=== PATIENT | female | born 1980 | race Caucasian/White ===

== ENCOUNTER 2019-02-02 11:39 | Emergency (ER) | payer SELFPAY ==
[2019-02-02] MEDS ORDERED: OXYCODONE-ACETAMINOPHEN 5-325 MG TABLET PO ONE (13:33)
--- NOTE | 2019-02-02 13:39 | ER Document Report ---
ED Medical Screen (RME) - General Chief Complaint: Abscess Stated Complaint: ABSCESS Time Seen by Provider: 02/02/19 13:33 Primary Care Provider: LINDSEY CISNEROS MD [Primary Care Provider] - Follow up as needed Mode of Arrival: Ambulatory Information source: Patient Notes: Pt with c/o abscess to right buttock over the last few days. Pt denies nay fever or HX of diabetes. Exam: Area of fluctuance and induration to right buttock. I have greeted and performed a rapid initial assessment of this patient. A comprehensive ED assessment and evaluation of the patient, analysis of test results and completion of the medical decision making process will be conducted by additional ED providers. I have specifically instructed the patient or family members with the patient to immediately return to any nursing staff should anything change in the patient's condition or with their chief complaint. This medical record was dictated with voice recognizing software. There may be grammatical, syntax errors that are unintended. TRAVEL OUTSIDE OF THE [place] IN LAST 30 DAYS: No - Related Data Allergies/Adverse Reactions: codeine [Codeine] Adverse Reaction (Intermediate, Verified 03/09/16 01:58) VOMITING aloe Adverse Reaction (Verified 03/10/16 16:10) Generalized rash Past Medical History - Social History Frequency of alcohol use: None Drug Abuse: None Renal/ Medical History: Denies: Hx Peritoneal Dialysis GI Medical History: Reports: Hx Gastroesophageal Reflux Disease Psychiatric Medical History: Reports: Hx Anxiety, Hx Depression Past Surgical History: Reports: Hx Gynecologic Surgery - D&C, Hx Tonsillectomy - Immunizations Hx Diphtheria, Pertussis, Tetanus Vaccination: Yes Physical Exam - Vital signs Vitals: Temp Pulse Resp BP Pulse Ox 99.1 F 89 18 110/73 97 02/02/19 11:48 02/02/19 11:48 02/02/19 11:48 02/02/19 11:48 02/02/19 11:48 Course - Vital Signs Vital signs: Temp Pulse Resp BP Pulse Ox 99.1 F 89 18 110/73 97 02/02/19 11:48 02/02/19 11:48 02/02/19 11:48 02/02/19 11:48 02/02/19 11:48 Doctor's Discharge - Discharge Referrals: LINDSEY CISNEROS MD [Primary Care Provider] - Follow up as needed
--- NOTE | 2019-02-02 15:00 | ER Document Report ---
ED Skin Rash/Insect Bite/Abscs - General Chief Complaint: Abscess Stated Complaint: ABSCESS Time Seen by Provider: 02/02/19 13:33 Primary Care Provider: [facility] [Provider Group] - Follow up as needed LINDSEY CISNEROS MD [Primary Care Provider] - Follow up in 3-5 days Mode of Arrival: Ambulatory Information source: Patient Notes: 38-year-old female presents to ED for abscess to the right buttocks. She states she has had it surgically treated several years ago in this hospital. She states the surgeon told her that she had a fistula and this was part of the Crohn's disease. She states she came in today to see if it needed to be surgically repaired. There is no large redness cellulitis area so we will treated with an I&D. TRAVEL OUTSIDE OF THE [place] IN LAST 30 DAYS: No - HPI Patient complains to provider of: Tender/swollen area Onset: Other - Several days Onset/Duration: Gradual Quality of pain: Pressure, Sharp Severity: Moderate Pain Level: 4 Skin Character: Abscess Identify cause: Yes Exacerbated by: Denies Relieved by: Denies Similar symptoms previously: Yes Recently seen / treated by doctor: No - Related Data Allergies/Adverse Reactions: codeine [Codeine] Adverse Reaction (Intermediate, Verified 03/09/16 01:58) VOMITING aloe Adverse Reaction (Verified 03/10/16 16:10) Generalized rash Past Medical History - General Information source: Patient - Social History Smoking Status: Current Every Day Smoker Cigarette use (# per day): Yes Frequency of alcohol use: None Drug Abuse: None Lives with: Family Family History: Reviewed & Not Pertinent Patient has suicidal ideation: No Patient has homicidal ideation: No - Past Medical History Cardiac Medical History: Reports: None - Number Pulmonary Medical History: Reports: None EENT Medical History: Reports: None Neurological Medical History: Reports: None Endocrine Medical History: Reports: None Renal/ Medical History: Reports: None Malignancy Medical History: Reports: None GI Medical History: Reports: Hx Crohn's Disease, Hx Gastroesophageal Reflux Disease Musculoskeletal Medical History: Reports None Skin Medical History: Reports None Psychiatric Medical History: Reports: Hx Anxiety, Hx Depression Traumatic Medical History: Reports: None Infectious Medical History: Reports: None Surgical Hx: Negative Past Surgical History: Reports: None, Hx Gynecologic Surgery - D&C, Hx Tonsillectomy, Other - I&D to abscess to right buttocks in the operating room - Immunizations Immunizations up to date: Yes Hx Diphtheria, Pertussis, Tetanus Vaccination: Yes Review of Systems - Review of Systems Constitutional: No symptoms reported EENT: No symptoms reported Cardiovascular: No symptoms reported Respiratory: No symptoms reported Gastrointestinal: No symptoms reported Genitourinary: No symptoms reported Female Genitourinary: No symptoms reported Musculoskeletal: No symptoms reported Skin: Other - Recurrent abscess to the right buttocks Hematologic/Lymphatic: No symptoms reported Neurological/Psychological: No symptoms reported -: Yes All other systems reviewed and negative Physical Exam - Vital signs Vitals: Temp Pulse Resp BP Pulse Ox 99.1 F 89 18 110/73 97 02/02/19 11:48 02/02/19 11:48 02/02/19 11:48 02/02/19 11:48 02/02/19 11:48 Interpretation: Normal - General General appearance: Appears well, Alert - HEENT Head: Normocephalic, Atraumatic Eyes: Normal Pupils: PERRL - Respiratory Respiratory status: No respiratory distress Chest status: Nontender Breath sounds: Normal Chest palpation: Normal - Cardiovascular Rhythm: Regular Heart sounds: Normal auscultation Murmur: No - Abdominal Inspection: Normal Distension: No distension Bowel sounds: Normal Tenderness: Nontender Organomegaly: No organomegaly - Back Back: Normal, Nontender - Extremities General upper extremity: Normal inspection, Nontender, Normal color, Normal ROM, Normal temperature General lower extremity: Normal inspection, Nontender, Normal color, Normal ROM, Normal temperature, Normal weight bearing. No: Jasson's sign - Neurological Neuro grossly intact: Yes Cognition: Normal Orientation: AAOx4 [place] Coma Scale Eye Opening: Spontaneous [place] Coma Scale Verbal: Oriented [place] Coma Scale Motor: Obeys Commands [place] Coma Scale Total: 15 Speech: Normal Motor strength normal: LUE, RUE, LLE, RLE Sensory: Normal - Psychological Associated symptoms: Normal affect, Normal mood - Skin Skin Temperature: Warm Skin Moisture: Dry Skin Color: Normal Skin irregularity: Abscess - Right buttocks recurrent abscess Location of irregularity: Other - Right buttocks Irregularity with: Swelling, Tenderness, Warmth Course - Vital Signs Vital signs: Temp Pulse Resp BP Pulse Ox 98.7 F 72 18 122/77 99 02/02/19 15:41 02/02/19 15:41 02/02/19 15:41 02/02/19 15:41 02/02/19 15:41 Procedures - Incision and Drainage Right Buttock Time completed: 15:20 Type: Simple Anesthetic type: 1% Lidocaine mL's of anesthetic: 5 Blade size: 11 I&D procedure: Shurclens applied, Iodoform packing placed Incision Method: Incision made by scalpel Amount/type of drainage: purulent drainage large amount Discharge - Discharge Clinical Impression: Abscess, perianal Condition: Stable Disposition: HOME, SELF-CARE Additional Instructions: ABSCESS: You have an abscess (boil). This a pus-forming infection, usually due to staph. Some boils may be left to drain on their own, but most require lancing. From the time the tender lump first appears, it may be three or four days before the abscess is ready to benoit. Local heat and rest help at this stage of treatment. An antibiotic may prevent spread of the infection. Once the abscess is opened, packing may be placed into it. This is done so pus is not sealed inside by premature closure of the cavity. The packing will be removed at your follow-up visit or you may be advised to remove it yourself at home. Sometimes this packing must be replaced a few times during healing. The wound will heal with surprisingly little scar. Depending on the size and location of an abscess, healing can take one to four weeks. You may shower and wash the area around the incision site two or three times a day. Antibiotics may be prescribed, but are usually not necessary after an abscess has been drained. If you develop fever, chills, worsening pain, or increasing swelling in the area, call the doctor or return immediately. POST INCISION AND DRAINAGE: You have had an incision made to allow drainage of an abscess. The incision must remain open so that pus and debris can drain from the wound. If the abscess cavity is large, packing is placed. This keeps the tissues from collapsing and trapping pus inside, while the body shrinks the cavity. The packing may need to be replaced every day or two. The physician will instruct you on the packing. Keep a bulky dressing over the area. Replace it if it becomes saturated with blood or pus. Do not disturb the packing (if present). You may shower and cleanse the area with gentle soap and warm water two or three times a day. Local warmth may be soothing, and may promote faster healing. Return if you develop high fever or chills, or if you note spreading redness, increasing swelling, or increasing tenderness. ORAL NARCOTIC MEDICATION: You have been given a oxycodone for pain control. This medication is a narcotic. It's best taken with food, as nausea can result if taken on an empty stomach. Don't operate machinery or drive within six hours of taking this medication. Do not combine this medicine with alcohol, or with any medication which can cause sedation (such as cold tablets or sleeping pills) unless you get permission from the physician. Narcotics tend to cause constipation. If possible, drink plenty of fluids and eat a diet high in fiber and fruits. CEPHALEXIN: The antibiotic you've been prescribed is a member of the cephalosporin class. This type of antibiotic covers a wide variety of infections, including those of the skin, lungs, and urinary tract. It's useful for staph infections. This antibiotic is slightly similar to the penicillin family. In rare cases, a person who is allergic to penicillin will also be allergic to this medication. If you have had a severe allergic reaction to penicillin, and have not taken this antibiotic since that time, notify your doctor. Antibiotics which cover many germs ("broad spectrum" antibiotics) are more likely to cause diarrhea or "yeast" infections. Women prone to vaginal yeast problems may suffer an attack after taking this antibiotic. In infants, oral thrush (white spots "stuck" on the cheek) or yeast diaper rash may result. See your doctor if these problems occur. Call at once if you develop itching, hives, shortness of breath, or lightheadedness. TRIMETHOPRIM-SULFA: You have been given a prescription for trimethoprim-sulfa (TMS, Septra, Bactrim). This is a combination antibiotic of the sulfa class, often used for urinary tract infections, middle ear infections, bronchitis, shigella intestinal infection, and Pneumocystis pneumonia. TMS is usually well-tolerated. Occasional side effects include nausea and decreased appetite. Septra is not recommended for infants less than two months of age. Do not take this medication if you have experienced severe side effects or allergy to sulfa medicine. You should stop this medicine at once and contact your physician if you develop any rash, joint pain, shortness of breath, bruising, or jaundice (yellow color in the skin), or if you develop any other new or unusual symptoms. FOLLOW-UP CARE: Most simple abscesses will not require a follow up visit. If you had packing placed in the abscess, remove it as instructed by the physician. If you have been referred to a physician for follow-up care, call the physicians office for an appointment as you were instructed or within the next two days. If you experience worsening or a significant change in your symptoms, return to the Emergency Department at any time for re-evaluation. Prescriptions: Cephalexin Monohydrate [Keflex 500 mg Capsule] 500 mg PO Q6H 7 Days capsule Sulfamethoxazole/Trimethoprim [Bactrim Ds Tablet] 1 each PO BID #14 tablet Referrals: LINDSEY CISNEROS MD [Primary Care Provider] - Follow up in 3-5 days [facility] [Provider Group] - Follow up as needed
[2019-02-02] MEDS ORDERED: HYDROCODONE/ACETAMINOPHEN 5-325 MG (6 TAB/ER DISP) PO PRN (15:22)
[2019-02-02] MEDS ORDERED: CEPHALEXIN 500 MG CAPSULE PO ONE (15:22)
[2019-02-02] MEDS ORDERED: SULFAMETHOXAZOLE/TRIMETHOPRIM 800-160 MG TABLET PO ONE (15:22)
[2019-02-02 15:42] VITALS: BP 122/77
== END 2019-02-02 15:43 | disposition home or self-care (01) ==
LOC: ER 11:39
DX: K61.0 Anal abscess (principal); F17.210 Nicotine dependence, cigarettes, uncomplicated
CPT/HCPCS: 99283; 87070; 87205; 46050; A6266

== ENCOUNTER 2019-02-05 05:44 | Emergency (ER) | payer SELFPAY ==
[2019-02-05] MEDS ORDERED: LIDOCAINE 1% INJ (10 MG/ML) 10 ML MDV INJ ONE (06:05)
--- NOTE | 2019-02-05 06:27 | ER Document Report ---
Entered by LE FARRELL SCRIBE 02/05/19 0607 Acting as scribe for:SYLVESTER JAMESON MD ED General - General Chief Complaint: Abscess Recheck Stated Complaint: ABSCESS Time Seen by Provider: 02/05/19 06:00 Primary Care Provider: LINDSEY CISNEROS MD [Primary Care Provider] - Follow up as needed Notes: Patient is a 30-year-old female presenting to the emergency department complaining of a abscess on her right buttock. Patient states that she was in the emergency department 2 days ago, she received an IMU, however the abscess was not fully drained. Patient states she is currently taking Bactrim. TRAVEL OUTSIDE OF THE [place] IN LAST 30 DAYS: No - Related Data Allergies/Adverse Reactions: codeine [Codeine] Adverse Reaction (Intermediate, Verified 03/09/16 01:58) VOMITING aloe Adverse Reaction (Verified 03/10/16 16:10) Generalized rash Past Medical History - General Information source: Patient - Social History Smoking Status: Never Smoker Cigarette use (# per day): No Chew tobacco use (# tins/day): No Frequency of alcohol use: None Drug Abuse: None Family History: Reviewed & Not Pertinent GI Medical History: Reports: Hx Crohn's Disease, Hx Gastroesophageal Reflux Disease Psychiatric Medical History: Reports: Hx Anxiety, Hx Depression Past Surgical History: Reports: Hx Gynecologic Surgery - D&C, Hx Tonsillectomy, Other - I&D to abscess to right buttocks in the operating room - Immunizations Immunizations up to date: Yes Hx Diphtheria, Pertussis, Tetanus Vaccination: Yes Review of Systems - Review of Systems Constitutional: No symptoms reported EENT: No symptoms reported Cardiovascular: No symptoms reported Respiratory: No symptoms reported Gastrointestinal: No symptoms reported Genitourinary: No symptoms reported Female Genitourinary: No symptoms reported Musculoskeletal: No symptoms reported Skin: No symptoms reported, Other - Abscess left buttock Hematologic/Lymphatic: No symptoms reported Neurological/Psychological: No symptoms reported -: Yes All other systems reviewed and negative Physical Exam - Vital signs Vitals: Temp Pulse Resp BP Pulse Ox 98.5 F 93 18 109/82 95 02/05/19 05:49 02/05/19 05:49 02/05/19 05:49 02/05/19 05:49 02/05/19 05:49 - Notes Notes: Physical Exam: General: Alert, appears well. HEENT: Normocephalic. Atraumatic. PERRL. Extraocular movements intact. Oropharynx clear. Neck: Supple. Non-tender. Respiratory: No respiratory distress. Clear and equal breath sounds bilaterally. Cardiovascular: Regular rate and rhythm. Abdominal: Normal Inspection. Non-tender. No distension. Normal Bowel Sounds. Back: Non-tender. No deformity or step off. Buttocks: 2mm opening present at the right lower medial gluteal. Purulent, fluctuance present coming out of the opening. No erythema present. Upon reentering to drain the abscess, 11 blade was utilized to make a 1 cm incision, 5 cc of 1% litigation was injected before making the incision. Discharge occurred upon making the incision. Extremities: Moves all four extremities. Upper extremities: Normal inspection. Normal ROM. Lower extremities: Normal inspection. No edema. Normal ROM. Neurological: Normal cognition. AAOx4. Normal speech. Psychological: Normal affect. Normal Mood. Skin: Warm. Dry. Normal color. Course - Vital Signs Vital signs: Temp Pulse Resp BP Pulse Ox 98.5 F 75 18 124/70 96 02/05/19 06:38 02/05/19 06:38 02/05/19 06:38 02/05/19 06:38 02/05/19 06:38 Discharge - Discharge Clinical Impression: Abscess Condition: Good Disposition: HOME, SELF-CARE Instructions: Abscess ([facility]), Post Incision and Drainage Referrals: LINDSEY CISNEROS MD [Primary Care Provider] - Follow up as needed I personally performed the services described in the documentation, reviewed and edited the documentation which was dictated to the scribe in my presence, and it accurately records my words and actions.
[2019-02-05 06:40] VITALS: BP 124/70
== END 2019-02-05 06:46 | disposition home or self-care (01) ==
LOC: ER 05:44
PROC: 0H98XZZ Drainage of Buttock Skin, External Approach (ICD-10-PCS; principal; 2019-02-05)
DX: L02.31 Cutaneous abscess of buttock (principal)
CPT/HCPCS: 10060; A6266; 96374; 99282

== ENCOUNTER 2019-08-10 20:55 | Emergency (ER) | payer OTHER ==
--- NOTE | 2019-08-10 21:07 | ER Document Report ---
ED Medical Screen (RME) - General Stated Complaint: ABSCESS Time Seen by Provider: 08/10/19 21:04 Primary Care Provider: LINDSEY CISNEROS MD [Primary Care Provider] - Follow up as needed TRAVEL OUTSIDE OF THE [place] 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 Patient states that she did have an appointment with the surgeon tomorrow but because of the weather it got moved to next week and she cannot wait any longer. Patient has noticed a very large area of abscess/infection to her right buttock area that she needs addressed today. She has been running low-grade temperatures at home. I have treated and performed a rapid initial assessment of this patient. A comprehensive ED assessment and evaluation of the patient, analysis of test results and completion of medical decision making process will be conducted by additional ED providers. PHYSICAL EXAMINATION: GENERAL: Well-appearing, well-nourished and in no acute distress. A&Ox4. Answers questions appropriately. Accompanied by female nurse Right buttock: There is a large indurated fluctuant abscessed area to the right medial buttock. This was just a brief exam otherwise. - Related Data Allergies/Adverse Reactions: codeine [Codeine] Adverse Reaction (Intermediate, Verified 03/09/16 01:58) VOMITING aloe Adverse Reaction (Verified 03/10/16 16:10) Generalized rash Past Medical History Renal/ Medical History: Denies: Hx Peritoneal Dialysis GI Medical History: Reports: Hx Crohn's Disease, Hx Gastroesophageal Reflux Dise ase Psychiatric Medical History: Reports: Hx Anxiety, Hx Depression Past Surgical History: Reports: Hx Gynecologic Surgery - D&C, Hx Tonsillectomy, Other - I&D to abscess to right buttocks in the operating room - Immunizations Immunizations up to date: Yes Hx Diphtheria, Pertussis, Tetanus Vaccination: Yes Physical Exam - Vital signs Vitals: Temp Pulse Resp BP Pulse Ox 99.6 F 98 16 123/74 100 08/10/19 20:59 08/10/19 20:59 08/10/19 20:59 08/10/19 20:59 08/10/19 20:59 Course - Vital Signs Vital signs: Temp Pulse Resp BP Pulse Ox 99.6 F 98 16 123/74 100 08/10/19 20:59 08/10/19 20:59 08/10/19 20:59 08/10/19 20:59 08/10/19 20:59 Doctor's Discharge - Discharge Referrals: LINDSEY CISNEROS MD [Primary Care Provider] - Follow up as needed
[2019-08-10 21:46] LABS: ABSOLUTE EOSINOPHILS # (AUTO) 0.1 10^3/uL (0.0-0.6); ABSOLUTE LYMPHOCYTES (AUTO) 2.4 10^3/uL (0.5-4.7); ABSOLUTE NEUT (AUTO) 10.6 10^3/uL (1.7-8.2); BASOPHILS % (AUTO) 0.2 % (0-2); EOSINOPHILS % (AUTO) 0.7 % (0-6); HEMATOCRIT 36.8 % (36.0-47.0); HEMOGLOBIN 12.3 g/dL (12.0-15.5); MEAN CORPUSCULAR HEMOGLOBIN 32.6 pg (27.0-33.4); MEAN CORPUSCULAR HGB CONC 33.5 g/dL (32.0-36.0); MEAN CORPUSCULAR VOLUME 97 fl (80-97); MONOCYTES % (AUTO) 6.8 % (3-13); PLATELET COUNT 272 10^3/uL (150-450); RED BLOOD COUNT 3.78 10^6/uL (3.72-5.28); RED CELL DISTRIBUTION WIDTH 13.6 % (11.5-14.0); SEGMENTED NEUTROPHILS % (AUTO) 75.3 % (42-78); TOTAL CELLS COUNTED % (AUTO) 100 %
[2019-08-10 21:58] LABS: ALBUMIN 4.2 g/dL (3.5-5.0); ALKALINE PHOSPHATASE 67 U/L (38-126); ANION GAP 9 (5-19); ASPARTATE AMINO TRANSFERASE 24 U/L (14-36); BILIRUBIN,DIRECT 0.3 mg/dL (0.0-0.4); BILIRUBIN,TOTAL 0.6 mg/dL (0.2-1.3); BLOOD UREA NITROGEN 8 mg/dL (7-20); CARBON DIOXIDE 26 mmol/L (22-30); CHLORIDE 103 mmol/L (98-107); GLUCOSE 98 mg/dL (75-110); POTASSIUM 3.7 mmol/L (3.6-5.0); TOTAL PROTEIN 7.2 g/dL (6.3-8.2)
--- NOTE | 2019-08-10 22:52 | ER Document Report ---
ED GI/ - General Chief Complaint: Abscess Stated Complaint: ABSCESS Time Seen by Provider: 08/10/19 21:04 Primary Care Provider: ERI PEPPER MD [ACTIVE STAFF] - 08/14/19 Notes: Patient is a 39-year-old female that comes to the emergency department for chief complaint of worsening pain in the buttock and rectum area for the past 3 days. She states now it is hard to sit down. She denies drainage from the area. She states that 2 separate times in the past she was diagnosed and treated for a perianal abscess. She states she also was diagnosed with Crohn's disease and ulcerative colitis by gastroenterology but she has not on treatment for either these, she was only prescribed Prilosec. She denies fever, vomiting, abdominal pain. She does report painful bowel movements. TRAVEL OUTSIDE OF THE [place] IN LAST 30 DAYS: No - Related Data Allergies/Adverse Reactions: codeine [Codeine] Adverse Reaction (Intermediate, Verified 03/09/16 01:58) VOMITING aloe Adverse Reaction (Verified 03/10/16 16:10) Generalized rash Home Medications: Effexor XR 150mg. Levo/liothyr 60mg. Xanax .25mg Past Medical History - General Information source: Patient - Social History Smoking Status: Current Every Day Smoker Chew tobacco use (# tins/day): No Frequency of alcohol use: None Drug Abuse: None Lives with: Family Family History: Reviewed & Not Pertinent Patient has suicidal ideation: No Patient has homicidal ideation: No Renal/ Medical History: Denies: Hx Peritoneal Dialysis GI Medical History: Reports: Hx Crohn's Disease, Hx Gastroesophageal Reflux Disease Psychiatric Medical History: Reports: Hx Anxiety, Hx Depression Past Surgical History: Reports: Hx Gynecologic Surgery - D&C, Hx Tonsillectomy, Other - I&D to abscess to right buttocks in the operating room - Immunizations Immunizations up to date: Yes Hx Diphtheria, Pertussis, Tetanus Vaccination: Yes Review of Systems - Review of Systems Constitutional: No symptoms reported EENT: No symptoms reported Cardiovascular: No symptoms reported Respiratory: No symptoms reported Gastrointestinal: See HPI Genitourinary: No symptoms reported Female Genitourinary: No symptoms reported Musculoskeletal: No symptoms reported Skin: See HPI Hematologic/Lymphatic: No symptoms reported Neurological/Psychological: No symptoms reported Physical Exam - Vital signs Vitals: Temp Pulse Resp BP Pulse Ox 99.6 F 98 16 123/74 100 08/10/19 20:59 02 20:59 08/10/19 20:59 08/10/19 20:59 08/10/19 20:59 - Notes Notes: GENERAL: Patient appears uncomfortable, lying on her side HEAD: Normocephalic, atraumatic. EYES: Pupils equal, round, and reactive to light. Extraocular movements intact. ENT: Oral mucosa moist, tongue midline. Oropharynx unremarkable. Airway patent. LUNGS: Clear to auscultation bilaterally, no wheezes, rales, or rhonchi. No respiratory distress. HEART: Regular rate and rhythm. No murmur ABDOMEN: Soft, non-tender. Non-distended. Bowel sounds present in all 4 quadrants. RECTAL: There is a large fluctuant abscess with a necrotic appearing head locate d over the right mid buttock near the gluteal cleft, there is surrounding cellulitis extending up towards the middle of the buttock and down into the gluteal cleft. Rectal exam is actually nontender and there is no apparent perianal abscess. There is a small amount of tenderness with palpation inside the rectum at the 4 o'clock position but no significant tenderness and nothing compared to palpation on the outside near the abscess and cellulitis. There is no mass or concerning finding otherwise. Exam performed with [facility] at bedside. EXTREMITIES: Moves all 4 extremities spontaneously. No edema, normal radial and dorsalis pedis pulses bilaterally. No cyanosis. BACK: no cervical, thoracic, lumbar midline tenderness. No saddle anesthesia, normal distal neurovascular exam. Moves all extremities in full range of motion. NEUROLOGICAL: Alert and oriented x3. Normal speech. Cranial nerves II through XII grossly intact. PSYCH: Normal affect, normal mood. SKIN: Warm, dry, normal turgor. No rashes or lesions noted. Course - Re-evaluation Re-evalutation: 08/10/19 23:35 Patient actually has an abscess with an obvious head over the buttocks at the edge of the gluteal cleft with surrounding cellulitis extending up the gluteus and down in the cleft. There is not any specific tenderness on rectal exam and there is not any noted perianal abscess. There is a small amount of tenderness palpating at the 4 o'clock position behind the area but no significant tenderness especially compared to palpation externally near the gluteal cleft and over the buttocks. Patient does not have a fever. She does have leukocytosis at 14,000. Because patient was scheduled to see surgeon Dr. Harris this coming day, I did call and speak with Dr. Pepper, surgical asked button spindler. I described to him the area and situation. His recommendation is to drain the gluteal abscess, treat her for cellulitis, and she can be seen in close follow-up in the clinic. She will be given return precautions as well. 08/10/19 I discussed the patient. She is very anxious and concerned about draining the abscess because of how large and painful the area is in with previous experiences with this. I discussed this with Dr. Nolen and patient will be provided with conscious sedation for the procedure to be performed. Patient is extremely grateful for this. Patient tolerated sedation very well, had excellent sedation, easy arousal, easy return to baseline without vomiting or any complications. The abscess had been drained, this was extremely large with large amount of purulent drainage, this was explored, packed, dressed. Provided patient with additional materials at home, antibiotics, she has been given Rocephin and Bactrim here, discussed close follow-up with the surgical clinic as already planned, discussed return precau tions. Patient states appreciation and agreement. - Vital Signs Vital signs: Temp Pulse Resp BP Pulse Ox 100.0 F 93 19 103/65 97 08/11/19 02:44 08/11/19 01:54 08/11/19 02:44 08/11/19 02:44 08/11/19 02:44 - Laboratory Result Diagrams: 08/10/19 21:20 08/10/19 21:20 Laboratory results interpreted by me: 08/10/19 21:20 WBC 14.0 H Absolute Neuts (auto) 10.6 H Procedures - Conscious Sedation Conscious sedation Consent obtained: Yes Prior complications: Procedural sedation Normal healthy pt.: P1. - ASA Classification Airway Evaluation: Normal anatomy. No: Abnormal 3-3-2 rule, Large tongue, Loose teeth, Obese Mallampati Classification: Class 1 Used during procedure: Suction available, IV access obtained, Pulse ox on pt., night monitor on pt. Medications administered: Ketamine Reversal agents: None I personally performed/intraservice time: Sedation - sedation witnessed/performed by Dr. Nolen at bedside, Procedure Complications: No - Incision and Drainage Right gluteal abscess Type: Single Anesthetic type: 1% Lidocaine w/epi mL's of anesthetic: 9 Blade size: 11 I&D procedure: Shurclens applied, Iodoform packing placed, Sterile dressing applied Incision Method: Incision made by scalpel Amount/type of drainage: Copious amount of blackish and dark greenish drainage expressed Notes: After patient had obtained good sedation with ketamine area was cleaned with surgical cleanser, anesthesia was provided with 1% lidocaine with epinephrine with about 9 cc. Incision was made over the necrotic head of the abscess, this caused a burst of drainage which caused necrotic tissue in a point hope ira to be removed from the area leaving a nice open abscess without any remaining necrotic tissue in point hope ira. Discharge - Discharge Clinical Impression: Abscess, gluteal, right Cellulitis Qualifiers: Site of cellulitis: unspecified site Qualified Code(s): L03.90 - Cellulitis, unspecified Condition: Stable Disposition: HOME, SELF-CARE Additional Instructions: You had a very large abscess in the right gluteal area with some surrounding cellulitis. This was drained and some tissue was removed from the top of this. Take antibiotics as prescribed. Call the surgical clinic today and set up your follow-up on Wednesday. I spoke with Dr. Abeba bedolla. You must be seen at this time and have the packing replaced and have this area rechecked. Come back if you are worse including developing fever, spreading redness, vomiting, increased pain, or any other concerning or worsening symptoms. Prescriptions: Sulfamethoxazole/Trimethoprim [Bactrim Ds Tablet] 1 each PO BID #14 tablet Cephalexin Monohydrate [Keflex 500 mg Capsule] 500 mg PO QID #28 capsule Referrals: ERI PEPPER MD [ACTIVE STAFF] - 08/14/19
[2019-08-10] MEDS ORDERED: ONDANSETRON HCL INJ/PF 4 MG/2 ML SDV IV ONE (22:57)
[2019-08-10] MEDS ORDERED: HYDROMORPHONE HCL INJ/PF 2 MG/ML AMPULE IV ONE (22:57)
[2019-08-10] MEDS ORDERED: CEFTRIAXONE 1 GM/D5W RTU 1 GM/50 ML RTUPB IV ONE (23:36)
[2019-08-10] MEDS ORDERED: SULFAMETHOXAZOLE/TRIMETHOPRIM 800-160 MG TABLET PO ONE (23:36)
[2019-08-11] MEDS ORDERED: LIDOCAINE 4% CREAM 5 GM TUBE TP ONE (00:09)
[2019-08-11] MEDS ORDERED: LIDOCAINE 1%/EPINEPHRINE INJ 20 ML VIAL INJ ONE (00:21)
[2019-08-11] MEDS ORDERED: KETAMINE HCL INJ 500 MG/10 ML VIAL IV ONE (00:42)
[2019-08-11] MEDS ORDERED: ONDANSETRON HCL INJ/PF 4 MG/2 ML SDV IV ONE (00:43)
[2019-08-11] MEDS ORDERED: HYDROCODONE/ACETAMINOPHEN 5-325 MG (6 TAB/ER DISP) PO PRN (02:33)
[2019-08-11 03:01] VITALS: BP 103/65
== END 2019-08-11 03:12 | disposition home or self-care (01) ==
LOC: ER 20:55
PROC: 0H98XZZ Drainage of Buttock Skin, External Approach (ICD-10-PCS; principal; 2019-08-10)
DX: K61.0 Anal abscess (principal); L03.317 Cellulitis of buttock; K62.89 Other specified diseases of anus and rectum; F17.200 Nicotine dependence, unspecified, uncomplicated; Z79.899 Other long term (current) drug therapy; Z88.8 Allergy status to other drugs, medicaments and biological substances
CPT/HCPCS: 96376; 99283; 99152; 96375; 96365; 36415; 87040; 85025; 80053; 10060; J3490 ×2; J1170; J2405 ×2; J0696